=== PATIENT | male | born 1995 | race Caucasian/White ===

== ENCOUNTER 2017-02-13 01:20 | Emergency (ER) | payer BC ==
[~2017-02-13] VITALS: Ht 177.8 cm; Wt 96.5 kg
[2017-02-13 01:24] VITALS: TEMP 37.1; Ht 177.8 cm; Wt 96.5 kg
[2017-02-13] MEDS ORDERED: DEXAMETHASONE SOD INJ 4 MG/ML 5 ML VIAL IM STA (01:37)
[2017-02-13] MEDS ORDERED: DEXAMETHASONE SOD INJ 10 MG/ML VIAL ONE (01:48)
--- NOTE | 2017-02-13 02:49 | EMERGENCY ROOM VISIT NOTE ---
History Report prepared by Brendon: Peri Barreto Under the Supervision of: Dr. Marcos Tai M.D. First contact with patient: 01:29 Chief Complaint: FOOD BOLUS Stated Complaint: THROAT PAIN/FOOD BOLUS History of Present Illness The patient is a 21 year old male who presents to the Emergency Room with complaints of a persistent lump in his throat for the past 1-2 hours. He had been feeling healthy prior to noticing the lump. He states that he was partying tonight with alcohol and cocaine use. He was snorting cocaine and notes that there is a possibility that it might have been adulterated with something else. He first noticed the lump while he was walking around after he had finished using the alcohol and cocaine. He is having trouble swallowing, but has no pain. He states that he can cough up the lump. He states the lump is "attached to him". He denies any SOB, nausea, vomiting, rash, fever, or chills. He denies any other drug use or new foods. Source of History: patient Onset: 1-2 hours ago Position: throat Quality: other (lump in throat) Timing: other (persistent) Associated Symptoms: No fevers, No chills, No SOB, No nausea, No vomiting, No rash Note: Pt reports trouble swallowing. Review of Systems See HPI for pertinent positives and negatives. A total of ten systems were reviewed and were otherwise negative. Past Medical & Surgical Medical Problems: (1) Asthma Family History Heart disease Social History Smoking Status: Never Smoker Alcohol Use: occasionally Drug Use: cocaine Housing Status: lives alone Occupation Status: employed Current/Historical Medications No Active Prescriptions or Reported Meds Allergies Coded Allergies: Penicillins (Verified Allergy, Unknown, as baby, 02/13/17) Physical Exam Vital Signs Date Time Temp Pulse Resp B/P (MAP) Pulse Ox O2 Delivery O2 Flow Rate FiO2 02/13/17 03:45 84 18 127/84 98 02/13/17 01:24 37.1 15 18 136/78 96 Room Air Physical Exam GENERAL: Awake, alert, mild slurred speech, in no acute distress HENT: Normocephalic, atraumatic. Isolated moderately edematous uvula. No tongue elevation or trismus. No posterior pharyngeal edema or erythema. EYES: Normal conjunctiva. Sclera non-icteric. NECK: Supple. No nuchal rigidity. FROM. No JVD. No stridor. No pain with tracheal manipulation. RESPIRATORY: Clear to auscultation. CARDIAC: Regular rate, normal rhythm. Extremities warm and well perfused. Pulses equal. ABDOMEN: Soft, non-distended. No tenderness to palpation. No rebound or guarding. No masses. RECTAL: Deferred. MUSCULOSKELETAL: Chest examination reveals no tenderness. The back is symmetrical on inspection without obvious abnormality. There is no CVA tenderness to palpation. No joint edema. NEURO: Normal sensorium. No sensory or motor deficits noted. SKIN: No rash or jaundice noted. Medical Decision & Procedures ER Provider Diagnostic Interpretation: EM preliminary read: XR soft tissue neck: Moderate uvula edema appreciated. No edema of epiglottis. Airway grossly patent. Medications Administered Medications (Trade) Dose Ordered Sig/Aniat Route Start Time Stop Time Status Last Admin Dose Admin Dexamethasone Sodium Phosphate (Decadron Inj) 10 mg NOW STAT IM 02/13/17 01:37 02/13/17 01:43 DC 02/13/17 01:51 10 MG ED Course 0130: The patient was evaluated in room B9. A complete history and physical exam was performed. 0137: Decadron Inj 10 mg IM. Medical Decision I reviewed the patient's past medical history, medications, and the nursing notes as described above. Differential diagnosis: uvulitis, pharyngitis, epiglottitis, peritonsillar abscess, retropharyngeal abscess, angioedema. The patient is a 21-year-old gentleman who presents to emergency Department with a sensation of something dangling in his throat per history of present illness. Vaccinations UTD. He reports he was drinking alcohol and snorted cocaine earlier this evening and then 2 hours later began to feel the sensation. On arrival patient has mild slurred speech but otherwise is alert and oriented in no distress. Patient's oropharynx is notable for isolated moderate uvula edema without any associated pharyngeal edema or injection. No stridor, tongue elevation or trismus. No pain with tracheal manipulation. Given the patient's clear history of cocaine use this evening with subsequent uvulitis, symptoms unlikely to be related to infection. Patient was given dexamethasone for edema. Plain film shows no obvious swelling of the epiglottis. Patient reevaluated after dexamethasone and with significant improvement in uvula edema. Strict return instructions were explained and the patient will follow-up with the [facility]. Findings and plan for follow-up reviewed patient. Patient agreeable and d/c'd per discharge instructions. Medication Reconcilliation Current Medication List: was personally reviewed by me Blood Pressure Screening Patient's blood pressure: Normal blood pressure Blood pressure disposition: Did not require urgent referral Impression Primary Impression: Uvulitis Scribe Attestation The scribe's documentation has been prepared under my direction and personally reviewed by me in its entirety. I confirm that the note above accurately reflects all work, treatment, procedures, and medical decision making performed by me. Departure Information Dispostion Home / Self-Care Prescriptions No Active Prescriptions or Reported Meds Referrals No Doctor, Assigned (PCP) Patient Instructions ED Viviana, [facility] Additional Instructions Please follow up with the [facility] on Wednesday for re-evaluation. You likely had an inflammatory reaction from your cocaine use. Swelling of your uvula improved significantly after steroids in the emergency department and it will continue to have effect over the next couple of days. Otherwise, your exam and xray did not show signs of an emergent condition at this time. Return to the emergency department for worsening symptoms as described in the accompanying instructions.
[2017-02-13 03:45] VITALS: BP 127/84; PULSE 84; O2SAT 98
--- NOTE | 2017-02-13 08:24 | DIAGNOSTIC IMAGING REPORT ---
SOFT TISSUES NECK 2 VIEWS CLINICAL HISTORY: Sore throat. Edematous uvula. FINDINGS: AP and lateral views of the soft tissues of the neck are obtained. No prior studies are available for comparison at the time of dictation. The soft tissues of the neck are normal in appearance. The airway is widely patent. The epiglottic shadow is normal. No radiodense foreign body is seen. The prevertebral/retropharyngeal soft tissues are normal. The cervical spine is intact as imaged. The visualized apical lung parenchyma appears clear. IMPRESSION: Unremarkable radiographic assessment of the soft tissues of the neck. Electronically signed by: Kamran Pratt M.D. 02/13/2017 8:22 AM Dictated Date/Time: 02/13/2017 8:21 AM
== END 2017-02-13 03:47 | disposition home or self-care (01) ==
LOC: C.EDB 01:21
DX: K12.2 Cellulitis and abscess of mouth (principal); J45.909 Unspecified asthma, uncomplicated; Z82.49 Family history of ischemic heart disease and other diseases of the circulatory system